=== PATIENT | male | born 1965 | race American Indian/Alaskan Native ===

== ENCOUNTER 2017-01-14 12:02 | Emergency (ER) | payer OTHER ==
[2017-01-14 13:44] LABS: Basophils % (Auto) 0.5 % (0.0-1.8); Eosinophils % (Auto) 1.1 % (0.0-4.3); Hematocrit 45.2 % (35.5-45.6); Hemoglobin 14.9 gm/dl (11.8-15.2); Mean Corpuscular HGB Conc 33 % (32-34); Mean Corpuscular Hemoglobin 28 pg (28-32); Mean Corpuscular Volume 85 fl (84-94); Platelet Count 263 K/mm3 (140-440); Red Blood Count 5.32 M/mm3 (3.65-5.03); Red Cell Distribution Width 13.3 % (13.2-15.2); White Blood Count 5.9 K/mm3 (4.5-11.0)
--- NOTE | 2017-01-14 13:49 | XRay Report ---
ROUTINE CHEST, TWO VIEWS: History: Shortness of breath. PA and lateral views demonstrate the heart and mediastinal contour to be of normal size and shape. The lungs are clear and fully expanded and the soft tissues and bony structures are normal. IMPRESSION: Normal study.
[2017-01-14 13:56] LABS: Anion Gap 18 mmol/L; Blood Urea Nitrogen 11 mg/dL (9-20); Calcium 9.7 mg/dL (8.4-10.2); Carbon Dioxide 27 mmol/L (22-30); Chloride 101.2 mmol/L (98-107); Glucose 85 mg/dL (75-100); Sodium 142 mmol/L (137-145)
[2017-01-14] MEDS ORDERED: CATAPRES ONE (16:24)
[2017-01-14] MEDS ORDERED: CATAPRES PO ONE (16:24)
[2017-01-14 17:24] VITALS: BP 147/97
[2017-01-14] MEDS ORDERED: ZITHROMAX PO ONE (18:27)
--- NOTE | 2017-01-14 18:33 | Emergency Department Report ---
ED Shortness of Breath HPI - General Chief Complaint: Dyspnea/Respdistress Stated Complaint: FLU SYMPTOMS Time Seen by Provider: 01/14/17 18:27 Source: patient Mode of arrival: Ambulatory Limitations: No Limitations - History of Present Illness Initial Comments: Patient is a 51-year-old male with a history of HIV last known CD4 count greater than 800 here with complaint of cough and shortness of breath over the last 2 weeks patient states that his partner was recently diagnosed with pneumonia and he is feeling very similar symptoms. He has some URI type symptoms with some ear pain and a sore throat. He also has a known history of Burkitt's lymphoma but his last treatment was in 2006. Patient does complain of some occasional night sweats. Shortness of breath is worse with exertion. MD Complaint: shortness of breath -: Gradual Radiation: other (none) Severity: moderate Improves With: rest Worsens With: exertion Known History Of: HIV Context: other (exposed to pneumonia) - Related Data Home Medications Medication Instructions Recorded Confirmed Last Taken Emtricitabin/Tenofovir [TRUVADA 09/04/13 09/04/13 Unknown 200-300 mg] buPROPion [Wellbutrin] 09/04/13 09/04/13 Unknown lamiVUDine [Epivir] 09/04/13 09/04/13 Unknown Previous Rx's Medication Instructions Recorded Last Taken Type Metoclopramide HCl [Reglan] 10 mg PO TID PRN #20 tablet 09/05/13 Unknown Rx traMADol [Ultram 50 MG tab] 50 - 100 mg PO Q8HR PRN #30 tablet 09/05/13 Unknown Rx Azithromycin [Zithromax TAB] 250 mg PO QDAY #4 tablet 01/14/17 Unknown Rx Ibuprofen [Motrin 600 MG tab] 600 mg PO Q8H PRN #30 tablet 01/14/17 Unknown Rx Allergies Allergy/AdvReac Type Severity Reaction Status Date / Time No Known Allergies Allergy Unverified 09/04/13 16:28 ED Review of Systems ROS: Stated complaint: FLU SYMPTOMS Other details as noted in HPI Constitutional: chills, malaise. denies: fever Respiratory: cough. denies: orthopnea, shortness of breath Cardiovascular: denies: chest pain, palpitations Gastrointestinal: denies: abdominal pain, nausea Neurological: denies: headache, weakness Psychiatric: denies: anxiety, depression ED Past Medical Hx - Past Medical History Previous Medical History?: Yes Hx of Cancer: Yes (Burkitt's lymphoma) Hx HIV: Yes - Social History Smoking Status: Never Smoker Substance Use Type: None - Medications Home Medications: Home Medications Medication Instructions Recorded Confirmed Last Taken Type Emtricitabin/Tenofovir [TRUVADA 09/04/13 09/04/13 Unknown History 200-300 mg] buPROPion [Wellbutrin] 09/04/13 09/04/13 Unknown History lamiVUDine [Epivir] 09/04/13 09/04/13 Unknown History Metoclopramide HCl [Reglan] 10 mg PO TID PRN #20 tablet 09/05/13 Unknown Rx traMADol [Ultram 50 MG tab] 50 - 100 mg PO Q8HR PRN #30 tablet 09/05/13 Unknown Rx Azithromycin [Zithromax TAB] 250 mg PO QDAY #4 tablet 01/14/17 Unknown Rx Ibuprofen [Motrin 600 MG tab] 600 mg PO Q8H PRN #30 tablet 01/14/17 Unknown Rx ED Physical Exam - General Limitations: No Limitations General appearance: alert, in no apparent distress - Head Head exam: Present: atraumatic, normocephalic - Eye Eye exam: Present: normal appearance - ENT ENT exam: Present: mucous membranes moist - Neck Neck exam: Present: normal inspection - Respiratory Respiratory exam: Present: normal lung sounds bilaterally. Absent: respiratory distress - Cardiovascular Cardiovascular Exam: Present: regular rate, normal rhythm. Absent: systolic murmur, diastolic murmur, rubs, gallop - GI/Abdominal GI/Abdominal exam: Present: soft, normal bowel sounds - Rectal Rectal exam: Present: deferred - Extremities Exam Extremities exam: Present: normal inspection - Back Exam Back exam: Present: normal inspection - Neurological Exam Neurological exam: Present: alert, oriented X3 - Psychiatric Psychiatric exam: Present: normal affect, normal mood - Skin Skin exam: Present: warm, dry, intact, normal color. Absent: rash ED Course Vital Signs 01/14/17 01/14/17 01/14/17 13:16 16:19 16:26 Temperature 97.9 F 98.3 F Pulse Rate 68 62 62 Respiratory 16 20 Rate Blood Pressure 155/111 154/110 Blood Pressure 154/110 [Left] O2 Sat by Pulse 100 100 Oximetry 01/14/17 17:23 Temperature Pulse Rate 68 Respiratory Rate Blood Pressure Blood Pressure 147/97 [Left] O2 Sat by Pulse Oximetry ED Medical Decision Making - Lab Data Result diagrams: 01/14/17 13:23 01/14/17 13:23 Laboratory Results - last 24 hr 01/14/17 01/14/17 01/14/17 13:23 13:23 16:51 WBC 5.9 RBC 5.32 H Hgb 14.9 Hct 45.2 MCV 85 MCH 28 MCHC 33 RDW 13.3 Plt Count 263 Lymph % (Auto) 39.9 H Alfalfa % (Auto) 6.3 Eos % (Auto) 1.1 Baso % (Auto) 0.5 Lymph # 2.4 Alfalfa # 0.4 Eos # 0.1 Baso # 0.0 Seg Neutrophils % 52.2 Seg Neutrophils # 3.1 Sodium 142 Potassium 4.0 Chloride 101.2 Carbon Dioxide 27 Anion Gap 18 BUN 11 Creatinine 1.1 Estimated GFR > 60 BUN/Creatinine Ratio 10.00 Glucose 85 Calcium 9.7 Troponin T < 0.010 NT-Pro-B Natriuret Pep 23.85 - Radiology Data Radiology results: report reviewed, image reviewed - Medical Decision Making Patient is a 51-year-old male with a history of HIV here with complaint of cough URI type symptoms for the last 2 weeks. He has a normal white count and negative chest x-ray here in the emergency department. He did mention occasional night sweats occurring over the last 2 weeks. I discussed this with him at length and advised him that he needs to follow-up with his oncologist immediately. He understands this and has an appointment next week. He will likely need a CAT scan of his chest. He does not need this in the emergency department. Given his length of symptoms I plan to cover him with a short course of azithromycin for atypical pneumonia and will discharge home. Portions of this chart were dictated with dictation software. There may be dictation errors contained within this note. Critical care attestation.: If time is entered above; I have spent that time in minutes in the direct care of this critically ill patient, excluding procedure time. ED Disposition Clinical Impression: Bronchitis Disposition: DC-01 TO HOME OR SELFCARE Is pt being admited?: No Condition: Stable Instructions: Acute Bronchitis (ED) Additional Instructions: Follow-up with her oncologist Prescriptions: Azithromycin [Zithromax TAB] 250 mg PO QDAY #4 tablet Ibuprofen [Motrin 600 MG tab] 600 mg PO Q8H PRN #30 tablet PRN Reason: Pain
== END 2017-01-14 18:30 | disposition home or self-care (01) ==
LOC: ED 12:02
DX: J40 Bronchitis, not specified as acute or chronic (principal)
CPT/HCPCS: 36415; 71020; 80048; 83880; 84484; 85025; 87040; 93005; 93010